=== PATIENT | female | born 1930 | race Caucasian/White ===

== ENCOUNTER 2017-01-31 10:39 | Inpatient (IN) | payer OTHER, MEDICARE ==
[~2017-01-31] VITALS: Ht 142.2 cm; Wt 47.6 kg
--- NOTE | 2017-01-31 11:00 | NUR ---
DR. HARVEY PERFORMED MSE; PT IN ED WITH C/O SWELLING AND BREAKDOWN TO SACRUM, PER GRANDDAUGHTER STARTED 5 DAYS AGO, PT HAS A HX OF DEMENTIA AND HAS LIMITED MOBILITY WITHOUT ASSISTANCE, PER FAMILY PT WENT TO URGENT CARE AND WAS GIVEN ABX AND OINTMENT FOR BREAKDOWN, PER FAMILY SWELLING IS WORSE NOW; PT IS AWAKE AND ALERT, MINIMAL SPEECH, PER FAMILY PT IS AT HER BASELINE, NOTED BREAKDOWN TO SACRUM, PT IS VERY WELL TAKEN CARE OF, CLEAN AND DRY IN DIAPER; PER FAMILY THEY HAVE BOUGHT A PILLOW TO ALLEVIATE PRESSURE ON PT SACRUM BUT CONCERNED ABOUT THE WOUND
--- NOTE | 2017-01-31 11:09 | NUR ---
STRAIGHT CATH FOR URINE, SENT TO LAB
[2017-01-31 11:31] LABS: microscopic required? NO
--- NOTE | 2017-01-31 11:33 | NUR ---
EKG IN PROGRESS
[2017-01-31 11:44] LABS: BASOPHIL % 0.8 % (0-2); PLATELET COUNT 193 x10^3mcL (130-400); RED CELL DISTRIBUTION WIDTH 13.3 % (11.5-14.5)
[2017-01-31 11:46] LABS: CALCIUM 8.8 mg/dL (8.5-10.1); CARBON DIOXIDE 29.3 mmol/L (21-32); CHLORIDE SERUM 109 mmol/L (98-107); CREATININE SERUM 0.9 mg/dL (0.6-1.0); GLUCOSE SERUM 105 mg/dL (74-106); POTASSIUM SERUM 3.8 mmol/L (3.5-5.1); SODIUM SERUM 145 mmol/L (136-145)
[2017-01-31 11:50] LABS: UA SPECIFIC GRAVITY 1.025 (1.005-1.035); urine erythrocyte NEGATIVE (NEGATIVE)
[2017-01-31 11:58] LABS: ALKALINE PHOSPHATASE 59 U/L (46-116); ALT/SGPT 22 U/L (14-59); AST/SGOT 29 U/L (15-37); BILIRUBIN TOTAL 0.5 mg/dL (0.20-1.00); T4(THYROXINE) 7.2 ug/dL (4.7-13.3); TOTAL PROTEIN, SERUM 6.6 g/dL (6.4-8.2)
--- NOTE | 2017-01-31 12:38 | NUR ---
WOUND CARE PERFORMED, WOUND CULTURED, PLACED ZEROFOAM DRESSING
[2017-01-31] MEDS ORDERED: BACTRIM DS1 TAB PO (12:53)
[2017-01-31] MEDS ORDERED: CAPTOPRIL25 MG PO (12:53)
[2017-01-31] MEDS ORDERED: ARICEPT10 MG PO (12:53)
[2017-01-31] MEDS ORDERED: SILVADENE1% TOP (12:54)
--- NOTE | 2017-01-31 13:21 | NUR ---
PT IS IN NO ACUTE DISTRESS, IVF STILL RUNNING, IV PATENT, NO S/S INFILTRATION
--- NOTE | 2017-01-31 13:48 | NUR ---
REPORT TO RAINER VELASQUEZ TO ASSUME CARE
--- NOTE | 2017-01-31 13:52 | NUR ---
RESIDENT AT BEDSIDE AND NOW FAMILY UNSURE ABOUT ADMIT, AWAITING RESPONSE
--- NOTE | 2017-01-31 14:00 | NUR ---
PT SON DOES NOT WANT PT ADMITTED PER GRANDDAUGHTER, GRANDDAUGHTER ON PHONE WITH PT SON AND RESIDENT AT BEDSIDE
[2017-01-31 14:16] LABS: CHOLESTEROL/HDL RATIO 3.7; PHOSPHOROUS 3.2 mg/dL (2.5-4.9)
[2017-01-31 14:21] LABS: T3 TOTAL 0.81 ng/mL
[2017-01-31 14:25] LABS: FREE T4 0.99 ng/dL (0.76-1.46); FREE THYROXINE INDEX 2.8 ug/dL (1.4-4.5); T4(THYROXINE) 8.1 ug/dL (4.7-13.3)
[2017-01-31 14:31] VITALS: BP 114/54
--- NOTE | 2017-01-31 14:38 | NUR ---
RECEIVED PT FROM ED VIA CORA. IV NOTED TO LFA PATENT AND INTACT. TELE 4 PLACED ON PT READING SBR. ORIENTED FAMILY TO ROOM AND SURROUNDINGS. INSTRUCTED PT AND FAMILY ON THE USE OF CALL LIGHT FOR ASSISTANCE. ENDORSED PT TO PRIMARY NURSE RAINER
--- NOTE | 2017-01-31 14:44 | NUR ---
CRUSHED MED WITH APPLE SAUCE. TOOK MED WITHOUT DIFFICULTY.
--- NOTE | 2017-01-31 16:25 | NUR ---
SLEEPING AT THIS TIME. FAMILY AT BEDSIDE. WILL CONTINUE TO MONITOR.
[2017-01-31 17:01] VITALS: BP 95/60
--- NOTE | 2017-01-31 18:25 | NUR ---
Pt WENT DOWN FOR CT SCAN.
--- NOTE | 2017-01-31 18:28 | NUR ---
PAGED DR ZHENG FOR CRITICAL TROPONIN OF 0.328
--- NOTE | 2017-01-31 18:36 | NUR ---
Pt ARRIVED ON THE FLOOR.
--- NOTE | 2017-01-31 19:32 | NUR ---
RECEIVED PT FROM AM RON SPERA. PATIENT QUIETLY RESTING IN BED AT THIS TIME. FAMILY MEMBERS BY BEDSIDE. CURRENT WEIGHT 44.7KG. NO S/SX OF DISTRESS NOTED.
[2017-01-31 21:43] VITALS: BP 115/61
--- NOTE | 2017-01-31 21:56 | NUR ---
HEPARIN DRIP INITIATED PER PROTOCOL. PTT ORDERED STAT AT 0330 02/01. FAMILY BY BEDSIDE INFORMED ABOUT TREATMENT. NO QUESTIONS AT THIS TIME. VERIFIED BY RON CENTENO.
--- NOTE | 2017-01-31 23:50 | NUR ---
PATIENT QUIETLY RESTING IN BED AT THIS TIME. AIR MATTRESS IN PLACE AND FAMILY MEMBER BY BEDSIDE. ALL SAFETY MEASURES IN PLACE AND NO S/SX OF DISTRESS NOTED. CONTINUED ON HEPARIN DRIP.
[2017-02-01 04:24] LABS: MAGNESIUM 1.9 mg/dL (1.8-2.4)
[2017-02-01 04:27] LABS: CALCIUM 7.4 mg/dL (8.5-10.1); CARBON DIOXIDE 22.1 mmol/L (21-32); CHLORIDE SERUM 114 mmol/L (98-107); CREATININE SERUM 0.6 mg/dL (0.6-1.0); GLUCOSE SERUM 105 mg/dL (74-106); POTASSIUM SERUM 3.5 mmol/L (3.5-5.1); SODIUM SERUM 146 mmol/L (136-145)
[2017-02-01 04:32] LABS: ALBUMIN 1.5 g/dL (3.4-5.0)
--- NOTE | 2017-02-01 04:34 | NUR ---
PATIENT NOTED TO BE SLIGHTLY AGITATED AT THIS TIME AND ATTEMPTING TO REMOVED IV LINE. WRAPPED IV SITE LOOSELY AND ATTEMPTED TO CALM PATIENT DOWN. GRANDDAUGHTER REFUSED ANY MEDICATIONS AT THIS TIME.
[2017-02-01 05:26] LABS: BASOPHIL % 0.7 % (0-2); RED CELL DISTRIBUTION WIDTH 13.3 % (11.5-14.5)
[2017-02-01 05:47] LABS: PLATELET COUNT 126 x10^3mcL (130-400)
--- NOTE | 2017-02-01 06:02 | NUR ---
RECEIVED RESULTS FOR PTT POST 6 HRS AFTER INITIAL HEPARIN DRIP. 52.2 PER PROTOCOL NO CHANGE NEEDED.
[2017-02-01 06:49] VITALS: BP 115/61
--- NOTE | 2017-02-01 06:49 | NUR ---
HEPARIN DRIP D/C OF NOW.
--- NOTE | 2017-02-01 07:49 | NUR ---
A/OX1 PERSON ONLY WITH CONFUSION. ON TEL 4 SB HR 57. RADIAL AND PEDAL PULSES PALPABLE. NO EDEMA OR SWELLING NOTED. <3 SECS CAP REFILL. SCDS IN PLACED. ON RA SAT 95%. DIMINISHED LUNG OSUNDS. NO NVD. Pt INCONTINENT OF URINE. HAS GENERALIZED WEAKNESS. NEEDS ASSIST WITH ADLS. SACRAL WOUND PRESENT. OPTIFOAM DRESSING INTACT. NO S/S OF PAIN. IV SITE INTACT ON LEFT WRIST. NS INFUSING WELL AT 100ML/HR. FAMILY AT BEDSIDE. WILL CONTINUE TO MONITOR. CALL LIGHT WITHIN REACH.
--- NOTE | 2017-02-01 08:26 | NUR ---
GRAND DAUGHTER AT BEDSIDE FEEDING Pt. NO DISTRESS NOTED. WILL CONTINUE TO MONITOR.
--- NOTE | 2017-02-01 09:37 | NUR ---
PER ORDER BY DR MANCIA CONTINUE HEPARIN DRIP.
[2017-02-01 10:07] VITALS: BP 102/48
--- NOTE | 2017-02-01 10:40 | NUR ---
SACRAL WOUND DRESSING DONE. Pt TOLERATED WELL. GRAND DAUGTHER AT BEDSIDE TO ASSIST. WILL CONTINUE TO MONITOR.
--- NOTE | 2017-02-01 10:43 | NUR ---
FAMILY REQUESTING TO LEAVE AT [address] MANCIA AWAITING CALL BACK.
--- NOTE | 2017-02-01 10:53 | NUR ---
FAMILY AT BEDSIDE EXPRESSING THE DESIRE TO LEAVE NOW. PAGED DR MANCIA AGAIN. AWAITING CALL BACK.
--- NOTE | 2017-02-01 11:12 | NUR ---
FAMILY REFUSES TO SEE DR MANCIA AND WANTED TO SIGN OUT. RISK AND BENEFITS EXPLAINED. FAMILY TAKES FULL RESPONSIBILITY OF LEAVING. DR MANCIA MADE AWARE.
--- NOTE | 2017-02-01 11:13 | NUR ---
IV SITE INTACT AND DC'D. TELEBOX CLEANED AND RETURNED. WILL ESCORT Pt DOWN THE LOBBY VIA WHEELCHAIR.
== END 2017-02-01 11:15 | disposition left against medical advice (07) | DRG 190 ==
LOC: ED 10:39 → DU 13:10
PROVIDERS: Emergency Medicine; ADMIT Family Medicine
DX: I21.4 Non-ST elevation (NSTEMI) myocardial infarction (principal); L89.153 Pressure ulcer of sacral region, stage 3; E44.0 Moderate protein-calorie malnutrition; E87.8 Other disorders of electrolyte and fluid balance, not elsewhere classified; G30.9 Alzheimer's disease, unspecified; F02.80 Dementia in other diseases classified elsewhere, unspecified severity, without behavioral disturbance, psychotic disturbance, mood disturbance, and anxiety; I10 Essential (primary) hypertension; M47.9 Spondylosis, unspecified; R22.2 Localized swelling, mass and lump, trunk; Z23 Encounter for immunization; Z82.49 Family history of ischemic heart disease and other diseases of the circulatory system; Z85.840 Personal history of malignant neoplasm of eye; Z68.23 Body mass index [BMI] 23.0-23.9, adult; Z74.01 Bed confinement status
CPT/HCPCS: 82962; 83880; 84439; 90715; J0295; J1642; J1644; J3490; J7030; J7040; Q0092

== ENCOUNTER 2017-02-19 22:22 | Inpatient (IN) | payer OTHER, MEDICARE ==
[~2017-02-19] VITALS: Ht 149.9 cm; Wt 39.0 kg
[~2017-02-19 22:22] MED LIST: ARICEPT10 MG PO; BACTRIM DS1 TAB PO; CAPTOPRIL25 MG PO; SILVADENE1% TOP
[2017-02-19 23:18] LABS: BASOPHIL % 0.5 % (0-2); PLATELET COUNT 232 x10^3mcL (130-400)
[2017-02-19 23:19] LABS: CARBON DIOXIDE 29.9 mmol/L (21-32); CHLORIDE SERUM 104 mmol/L (98-107); GLUCOSE SERUM 99 mg/dL (74-106); POTASSIUM SERUM 4.5 mmol/L (3.5-5.1); SODIUM SERUM 141 mmol/L (136-145)
[2017-02-19 23:30] LABS: ALBUMIN 3.2 g/dL (3.4-5.0); ALKALINE PHOSPHATASE 58 U/L (46-116); ALT/SGPT 16 U/L (14-59); AST/SGOT 18 U/L (15-37); BILIRUBIN TOTAL 0.9 mg/dL (0.20-1.00); TOTAL PROTEIN, SERUM 7.5 g/dL (6.4-8.2)
[2017-02-19 23:36] LABS: CK-MB 1.3 ng/mL (0-3.6)
[2017-02-20] MEDS ORDERED: ASPIR 8181 MG PO (01:10)
[2017-02-20 01:44] LABS: FREE T4 1.27 ng/dL (0.76-1.46); FREE THYROXINE INDEX 3.3 ug/dL (1.4-4.5); T4(THYROXINE) 9.3 ug/dL (4.7-13.3)
[2017-02-20 01:53] VITALS: BP 105/85
[2017-02-20 02:11] LABS: T3 TOTAL 0.81 ng/mL
[2017-02-20 05:53] VITALS: BP 99/57
[2017-02-20 07:12] LABS: MAGNESIUM 2.1 mg/dL (1.8-2.4); PHOSPHOROUS 3.5 mg/dL (2.5-4.9)
[2017-02-20 07:17] LABS: CHOLESTEROL/HDL RATIO 3.8
[2017-02-20 07:33] LABS: microscopic required? YES; urine erythrocyte 1+ (NEGATIVE)
[2017-02-20 09:57] VITALS: BP 117/66
[2017-02-20 14:00] VITALS: BP 108/65
[2017-02-20 17:20] VITALS: BP 101/56
[2017-02-20 19:25] VITALS: BP 94/53
[2017-02-21 05:47] VITALS: BP 98/57
[2017-02-21 07:00] LABS: ALKALINE PHOSPHATASE 43 U/L (46-116); ALT/SGPT 12 U/L (14-59); AST/SGOT 17 U/L (15-37); CALCIUM 8.1 mg/dL (8.5-10.1); CARBON DIOXIDE 24.9 mmol/L (21-32); CHLORIDE SERUM 110 mmol/L (98-107); CREATININE SERUM 0.7 mg/dL (0.6-1.0); GLUCOSE SERUM 103 mg/dL (74-106); POTASSIUM SERUM 3.8 mmol/L (3.5-5.1); SODIUM SERUM 143 mmol/L (136-145)
[2017-02-21 07:05] LABS: ALBUMIN 2.5 g/dL (3.4-5.0); TOTAL PROTEIN, SERUM 5.6 g/dL (6.4-8.2)
[2017-02-21 07:13] LABS: BASOPHIL % 0.4 % (0-2); PLATELET COUNT 185 x10^3mcL (130-400); RED CELL DISTRIBUTION WIDTH 13.4 % (11.5-14.5)
[2017-02-21 09:50] VITALS: BP 116/59
[2017-02-21 13:45] VITALS: BP 100/56
[2017-02-21 17:40] VITALS: BP 108/65
[2017-02-21 21:35] VITALS: BP 107/60
[2017-02-22 06:32] LABS: CALCIUM 7.8 mg/dL (8.5-10.1); CHLORIDE SERUM 110 mmol/L (98-107); CREATININE SERUM 0.6 mg/dL (0.6-1.0); GLUCOSE SERUM 88 mg/dL (74-106); POTASSIUM SERUM 3.8 mmol/L (3.5-5.1); SODIUM SERUM 141 mmol/L (136-145)
[2017-02-22 06:46] VITALS: BP 134/78
[2017-02-22 09:57] VITALS: BP 136/70
[2017-02-22 10:55] VITALS: BP 107/56
[2017-02-22 11:57] VITALS: Ht 149.9 cm; Wt 39.0 kg
[2017-02-22 13:07] VITALS: BP 123/64
[2017-02-22 17:57] VITALS: BP 140/57
[2017-02-22 21:09] VITALS: BP 114/57
[2017-02-23 06:39] VITALS: BP 118/69
[2017-02-23 06:47] LABS: ALKALINE PHOSPHATASE 45 U/L (46-116); ALT/SGPT 21 U/L (14-59); AST/SGOT 20 U/L (15-37); CALCIUM 7.4 mg/dL (8.5-10.1); CARBON DIOXIDE 24.4 mmol/L (21-32); CHLORIDE SERUM 117 mmol/L (98-107); CREATININE SERUM 0.5 mg/dL (0.6-1.0); GLUCOSE SERUM 92 mg/dL (74-106); POTASSIUM SERUM 3.7 mmol/L (3.5-5.1); SODIUM SERUM 150 mmol/L (136-145)
[2017-02-23 06:48] LABS: TOTAL PROTEIN, SERUM 5.2 g/dL (6.4-8.2)
[2017-02-23 06:49] LABS: BASOPHIL % 0.5 % (0-2); PLATELET COUNT 185 x10^3mcL (130-400); RED CELL DISTRIBUTION WIDTH 13.2 % (11.5-14.5)
[2017-02-23 09:54] VITALS: BP 135/72
[2017-02-23 15:33] VITALS: BP 121/61
[2017-02-23 21:13] VITALS: BP 151/83
[2017-02-24 06:10] VITALS: BP 111/50
[2017-02-24 07:29] LABS: CALCIUM 8.1 mg/dL (8.5-10.1); CARBON DIOXIDE 26.9 mmol/L (21-32); CHLORIDE SERUM 112 mmol/L (98-107); CREATININE SERUM 0.5 mg/dL (0.6-1.0); GLUCOSE SERUM 87 mg/dL (74-106); POTASSIUM SERUM 3.6 mmol/L (3.5-5.1); SODIUM SERUM 146 mmol/L (136-145)
[2017-02-24 09:00] VITALS: BP 105/48
[2017-02-24 09:22] VITALS: BP 105/48
[2017-02-24 17:12] VITALS: BP 143/65
[2017-02-24 20:41] VITALS: BP 105/60
[2017-02-25 05:17] VITALS: BP 146/80
[2017-02-25 06:30] LABS: CALCIUM 7.7 mg/dL (8.5-10.1); CARBON DIOXIDE 25.2 mmol/L (21-32); CHLORIDE SERUM 110 mmol/L (98-107); CREATININE SERUM 0.6 mg/dL (0.6-1.0); GLUCOSE SERUM 108 mg/dL (74-106); POTASSIUM SERUM 3.5 mmol/L (3.5-5.1); SODIUM SERUM 144 mmol/L (136-145)
[2017-02-25 06:45] LABS: PLATELET COUNT 193 x10^3mcL (130-400); RED CELL DISTRIBUTION WIDTH 13.1 % (11.5-14.5)
[2017-02-25 09:21] LABS: BAND NEUTROPHIL 1 % (0-10); BASOPHIL 0 % (0-2); MONOCYTE 3 % (0-7); SEGMENTED NEUTROPHILS 83 % (37-75)
[2017-02-25 09:23] LABS: rbc morphology (normal/abnorm) ABNORMAL (NORMAL)
[2017-02-25 09:24] LABS: PLATELET MORPHOLOGY PLATELETS NORMAL
[2017-02-25 13:39] VITALS: BP 128/69
[2017-02-25] MEDS ORDERED: SEN PO (14:00)
[2017-02-25] MEDS ORDERED: ATORVASTATIN CA40 M1 PO (14:03)
== END 2017-02-25 18:44 | disposition home health service (06) | DRG 380 ==
LOC: ED 22:22 → DU 02-20 00:31 → MU 02-20 00:31 → DU 02-20 01:42 → MU 02-23 11:55
PROVIDERS: Emergency Medicine; ADMIT Family Medicine
PROC: 0JB70ZZ Excision of Back Subcutaneous Tissue and Fascia, Open Approach (ICD-10-PCS; principal; 2017-02-22)
DX: L89.153 Pressure ulcer of sacral region, stage 3 (principal); N17.0 Acute kidney failure with tubular necrosis; E43 Unspecified severe protein-calorie malnutrition; G93.41 Metabolic encephalopathy; I50.33 Acute on chronic diastolic (congestive) heart failure; G30.9 Alzheimer's disease, unspecified; I35.1 Nonrheumatic aortic (valve) insufficiency; I42.9 Cardiomyopathy, unspecified; F02.80 Dementia in other diseases classified elsewhere, unspecified severity, without behavioral disturbance, psychotic disturbance, mood disturbance, and anxiety; I25.10 Atherosclerotic heart disease of native coronary artery without angina pectoris; Z68.1 Body mass index [BMI] 19.9 or less, adult; I25.2 Old myocardial infarction; I11.0 Hypertensive heart disease with heart failure; Z90.710 Acquired absence of both cervix and uterus; Z82.49 Family history of ischemic heart disease and other diseases of the circulatory system; Z79.82 Long term (current) use of aspirin
CPT/HCPCS: 83880; 84439; C9113; J0696; J2001; J2270; J7030; Q0092

== ENCOUNTER 2017-03-25 13:21 | Inpatient (IN) | payer MEDICARE, OTHER ==
[2017-03-25] VITALS (9 sets, daily range): BP systolic 70–103; BP diastolic 33–58
[~2017-03-25] VITALS: Ht 149.9 cm; Wt 45.0 kg
[~2017-03-25 13:21] MED LIST changes: +ASPIR 8181 MG PO; +ATORVASTATIN CA40 M1 PO; +SEN PO
[2017-03-25 13:51] LABS: BASOPHIL % 0.1 % (0-2); PLATELET COUNT 174 x10^3mcL (130-400)
[2017-03-25 13:56] LABS: RED CELL DISTRIBUTION WIDTH 14.6 % (11.5-14.5)
[2017-03-25 14:29] LABS: ALKALINE PHOSPHATASE 43 U/L (46-116); ALT/SGPT 65 U/L (14-59); AST/SGOT 68 U/L (15-37); BILIRUBIN TOTAL 0.3 mg/dL (0.20-1.00); CALCIUM 7.7 mg/dL (8.5-10.1); CARBON DIOXIDE 30.7 mmol/L (21-32); CHLORIDE SERUM 129 mmol/L (98-107); CREATININE SERUM 2.1 mg/dL (0.6-1.0); GLUCOSE SERUM 130 mg/dL (74-106); POTASSIUM SERUM 4.3 mmol/L (3.5-5.1); TOTAL PROTEIN, SERUM 6.3 g/dL (6.4-8.2)
[2017-03-25 14:29] LABS: microscopic required? YES; urine erythrocyte 3+ (NEGATIVE)
[2017-03-25 14:32] LABS: ALBUMIN 2.1 g/dL (3.4-5.0); SODIUM SERUM 169 mmol/L (136-145)
[2017-03-25 15:10] LABS: CK-MB 2.1 ng/mL (0-3.6)
[2017-03-25 17:20] LABS: CALCIUM 7.4 mg/dL (8.5-10.1); CARBON DIOXIDE 29.8 mmol/L (21-32); CHLORIDE SERUM 130 mmol/L (98-107); CREATININE SERUM 1.9 mg/dL (0.6-1.0); GLUCOSE SERUM 116 mg/dL (74-106); POTASSIUM SERUM 4.5 mmol/L (3.5-5.1)
[2017-03-25 17:22] LABS: SODIUM SERUM 169 mmol/L (136-145)
[2017-03-25 17:30] LABS: MAGNESIUM 2.8 mg/dL (1.8-2.4); PHOSPHOROUS 3.7 mg/dL (2.5-4.9)
[2017-03-25 21:22] LABS: CARBON DIOXIDE 26.2 mmol/L (21-32); CHLORIDE SERUM 128 mmol/L (98-107); CREATININE SERUM 1.6 mg/dL (0.6-1.0); GLUCOSE SERUM 141 mg/dL (74-106)
[2017-03-25 21:25] LABS: SODIUM SERUM 163 mmol/L (136-145)
[2017-03-26 00:41] LABS: CALCIUM 6.9 mg/dL (8.5-10.1); CARBON DIOXIDE 29.2 mmol/L (21-32); CHLORIDE SERUM 126 mmol/L (98-107); CREATININE SERUM 1.4 mg/dL (0.6-1.0); GLUCOSE SERUM 112 mg/dL (74-106); POTASSIUM SERUM 3.6 mmol/L (3.5-5.1)
[2017-03-26 00:46] LABS: SODIUM SERUM 163 mmol/L (136-145)
[2017-03-26 03:22] VITALS: BP 96/53
[2017-03-26 05:34] LABS: CARBON DIOXIDE 26.9 mmol/L (21-32); CHLORIDE SERUM 123 mmol/L (98-107); CREATININE SERUM 1.2 mg/dL (0.6-1.0); GLUCOSE SERUM 101 mg/dL (74-106); MAGNESIUM 2.3 mg/dL (1.8-2.4); PHOSPHOROUS 2.2 mg/dL (2.5-4.9); POTASSIUM SERUM 3.1 mmol/L (3.5-5.1); SODIUM SERUM 146 mmol/L (136-145)
[2017-03-26 05:58] LABS: BASOPHIL % 0.3 % (0-2); RED CELL DISTRIBUTION WIDTH 14.2 % (11.5-14.5)
[2017-03-26 05:59] LABS: PLATELET COUNT 114 x10^3mcL (130-400)
[2017-03-26 07:10] VITALS: BP 115/53
[2017-03-26 11:10] VITALS: BP 92/55
[2017-03-26 15:00] VITALS: BP 111/53
[2017-03-26 19:15] VITALS: BP 89/51
[2017-03-26 23:41] VITALS: BP 90/52
[2017-03-27 03:55] VITALS: BP 112/62; BP 122/77
[2017-03-27 05:24] LABS: BASOPHIL % 0.4 % (0-2); RED CELL DISTRIBUTION WIDTH 14.1 % (11.5-14.5)
[2017-03-27 05:29] LABS: PLATELET COUNT 92 x10^3mcL (130-400)
[2017-03-27 05:33] LABS: CALCIUM 7.3 mg/dL (8.5-10.1); CARBON DIOXIDE 26.1 mmol/L (21-32); CHLORIDE SERUM 126 mmol/L (98-107); CREATININE SERUM 0.8 mg/dL (0.6-1.0); GLUCOSE SERUM 118 mg/dL (74-106); MAGNESIUM 1.9 mg/dL (1.8-2.4); PHOSPHOROUS 1.8 mg/dL (2.5-4.9); POTASSIUM SERUM 3.8 mmol/L (3.5-5.1); SODIUM SERUM 158 mmol/L (136-145)
[2017-03-27 08:08] VITALS: BP 108/63
[2017-03-27 08:28] LABS: CARBON DIOXIDE 22.4 mmol/L (21-32); CHLORIDE SERUM 127 mmol/L (98-107); CREATININE SERUM 0.8 mg/dL (0.6-1.0); GLUCOSE SERUM 114 mg/dL (74-106); POTASSIUM SERUM 3.8 mmol/L (3.5-5.1)
[2017-03-27 08:40] LABS: SODIUM SERUM 159 mmol/L (136-145)
[2017-03-27 12:10] VITALS: BP 124/66
[2017-03-27 13:47] VITALS: BP 106/63
[2017-03-27 17:37] VITALS: BP 133/71
[2017-03-27 19:06] VITALS: Ht 149.9 cm; Wt 45.0 kg
[2017-03-27 21:51] VITALS: BP 127/63
[2017-03-28 06:01] LABS: BASOPHIL % 0.2 % (0-2); RED CELL DISTRIBUTION WIDTH 13.8 % (11.5-14.5)
[2017-03-28 06:27] LABS: CALCIUM 7.4 mg/dL (8.5-10.1); CARBON DIOXIDE 22.4 mmol/L (21-32); CHLORIDE SERUM 120 mmol/L (98-107); CREATININE SERUM 0.6 mg/dL (0.6-1.0); GLUCOSE SERUM 108 mg/dL (74-106); POTASSIUM SERUM 3.4 mmol/L (3.5-5.1); SODIUM SERUM 154 mmol/L (136-145)
[2017-03-28 06:37] LABS: PLATELET COUNT 103 x10^3mcL (130-400)
[2017-03-28 06:38] VITALS: BP 108/72
[2017-03-28 08:58] VITALS: BP 134/79
[2017-03-28 17:20] VITALS: BP 115/67
[2017-03-28 20:11] VITALS: BP 115/67
[2017-03-29 09:27] VITALS: BP 132/66
[2017-03-29 14:00] VITALS: BP 132/66
[2017-03-29 16:30] VITALS: BP 132/66
== END 2017-03-29 17:41 | disposition hospice, inpatient (51) | DRG 720 ==
LOC: ED 13:21 → IC 16:17 → MU 16:17 → DU 16:17 → IC 19:22 → DU 03-27 13:38 → MU 03-27 14:05
PROVIDERS: Emergency Medicine; ADMIT Family Medicine
PROC: 05HM33Z Insertion of Infusion Device into Right Internal Jugular Vein, Percutaneous Approach (ICD-10-PCS; principal; 2017-03-25)
PROC: B543ZZA Ultrasonography of Right Jugular Veins, Guidance (ICD-10-PCS; 2017-03-25)
DX: A41.9 Sepsis, unspecified organism (principal); N17.0 Acute kidney failure with tubular necrosis; E43 Unspecified severe protein-calorie malnutrition; R65.21 Severe sepsis with septic shock; G93.41 Metabolic encephalopathy; E87.0 Hyperosmolality and hypernatremia; G30.9 Alzheimer's disease, unspecified; L89.153 Pressure ulcer of sacral region, stage 3; F02.80 Dementia in other diseases classified elsewhere, unspecified severity, without behavioral disturbance, psychotic disturbance, mood disturbance, and anxiety; N39.0 Urinary tract infection, site not specified; I11.9 Hypertensive heart disease without heart failure; I25.10 Atherosclerotic heart disease of native coronary artery without angina pectoris; E78.5 Hyperlipidemia, unspecified; M62.50 Muscle wasting and atrophy, not elsewhere classified, unspecified site; Z68.1 Body mass index [BMI] 19.9 or less, adult; Z90.710 Acquired absence of both cervix and uterus; I25.2 Old myocardial infarction; E87.8 Other disorders of electrolyte and fluid balance, not elsewhere classified; E87.6 Hypokalemia; E83.51 Hypocalcemia
CPT/HCPCS: 36556; 36600; 82962; 83880; 92610; J0696; J1642; J1956; J2060; J2270; J2543; J3480; J3490; J7030; J7040; J7060; J7070; J7620; Q0092